=== PATIENT | female | born 1985 | race Caucasian/White ===

== ENCOUNTER 2018-02-11 16:55 | Emergency (ER) | payer BC ==
[~2018-02-11] VITALS: Ht 160 cm; Wt 47.6 kg
[2018-02-11 17:15] VITALS: BP 136/86
[2018-02-11] MEDS ORDERED: PROCHLORPERAZINE EDISYLATE 10 MG/2 ML VIAL IVP ONE (18:00)
[2018-02-11] MEDS ORDERED: KETOROLAC TROMETHAMINE INJ 30 MG/ML VIAL IV ONE (18:00)
[2018-02-11] MEDS ORDERED: IV NS 0.9% 1,000 ML BAG IV ONE (18:00)
[2018-02-11] MEDS ORDERED: diphenhydrAMINE HCL 50 MG/ML VIAL IV ONE (18:00)
[2018-02-11] MEDS ORDERED: KETOROLAC TROMETHAMINE INJ 30 MG/ML VIAL ONE (18:06)
[2018-02-11] MEDS ORDERED: diphenhydrAMINE HCL 50 MG/ML VIAL ONE (18:07)
[2018-02-11] MEDS ORDERED: PROCHLORPERAZINE EDISYLATE 10 MG/2 ML VIAL ONE (18:07)
--- NOTE | 2018-02-11 18:55 | NUR ---
[facility] [phone]
== END 2018-02-11 19:42 | disposition home or self-care (01) ==
LOC: ER 16:56
DX: R51 Headache (principal); M79.7 Fibromyalgia; Z88.2 Allergy status to sulfonamides; Z88.8 Allergy status to other drugs, medicaments and biological substances; Z60.2 Problems related to living alone; Z98.890 Other specified postprocedural states
CPT/HCPCS: 96374; 96375; 99284; A4606; J0780; J1200; J1885; J7030; Z7610